=== PATIENT | female | born 1970 | race Two or more races ===

== ENCOUNTER → 2024-06-05 | Outpatient (CLI) | payer BC, SELFPAY ==
[2024-06-05 10:34] LABS: Basophils % (Auto) 1 % (0-2.5); Eosinophils % (Auto) 1 % (0-10); Hematocrit 39.1 % (36.0-46.0); Hemoglobin 13.4 g/dL (12.0-16.0); Immature Granulocytes % (Auto) 0 % (0-0); Immature Granulocytes Auto 0.01 Thou/mm3 (0.00-0.00); Immature Reticulocyte Fraction 15.2 % (3.0-15.9); Lymphocytes # (Auto) 1.4 Thou/mm3 (1.0-4.8); Lymphocytes % (Auto) 26 % (10-50); Mean Corpuscular HGB Conc 34.3 g/dl (31.0-37.0); Mean Corpuscular Hemoglobin 32.4 pg (25.0-35.0); Mean Corpuscular Volume 94 fL (80-100); Monocytes # (Auto) 0.4 Thou/mm3 (0.0-0.8); Monocytes % (Auto) 8 % (0-12); Neutrophils # (Auto) 3.3 Thou/mm3 (1.8-7.7); Neutrophils % (Auto) 64 % (37-80); Nucleated Red Blood Cell % 0 /100 WBC (0); Platelet Count 313 Thou/mm3 (140-440); RDW Standard Deviation 48.7 fL (36.4-46.3); Red Blood Count 4.14 Miln/mm3 (4.00-5.20); Reticulocyte Hgb Content 37.7 pg (28.0-35.0); White Blood Count 5.2 Thou/mm3 (3.6-11.0)
[2024-06-05 11:05] LABS: Alanine Aminotransferase 22 U/L (10-49); Albumin, Serum 4.7 gm/dL (3.5-5.0); Albumin/Globulin Ratio 2.1 (1.2-2.2); Alkaline Phosphatase 101 U/L (46-116); Anion Gap 10 (7-16); Aspartate Amino Transferase 25 U/L (0-34); BUN/Creatinine Ratio 30 Ratio (12-20); Bilirubin,Total 0.5 mg/dL (0.3-1.2); Blood Urea Nitrogen 21 mg/dL (9-23); Calcium 9.7 mg/dL (8.3-10.6); Calcium (Corrected) 9.7 mg/dL (8.5-10.1); Carbon Dioxide 24.2 mMol/L (20.0-31.0); Chloride 105 mMol/L (98-107); Creatinine (Component) 0.7 mg/dL (0.6-1.3); Globulin 2.2 gm/dL (2.3-3.5); Glucose 102 mg/dL (74-106); Osmolality,Calculated 280 (275-295); Potassium 4.4 mMol/L (3.4-5.1); Sodium 139 mMol/L (136-145); Total Protein 6.9 gm/dL (5.7-8.2); eGFR > 60 See Note
[2024-06-05 11:06] LABS: Ferritin 379 ng/mL (7.3-270.7); Iron 62 mcg/dL (50-170); Percent Iron Saturation 16 % (20-55); Total Iron Binding Capacity 368 mcg/dL (250-425); Unsaturated Iron Binding 306 (225-295)
[2024-06-05 14:05] LABS: Folate 10.58 ng/mL (>5.38)
[2024-06-05 15:55] LABS: Vitamin B12 299 pg/mL (211-911)
== END | disposition home or self-care (01) ==
PROVIDERS: PCP Internal Medicine; Referring Provider Nurse Practitioner Family; Visit Provider Nurse Practitioner Family
DX: D50.9 Iron deficiency anemia, unspecified (principal)
CPT/HCPCS: 36415; 80053; 82607; 82728; 82746; 83540; 83550; 85025; 85046

== ENCOUNTER 2024-06-09 09:02 | Outpatient (RCR) | payer BC, SELFPAY | END 2024-07-01 23:59 | disposition home or self-care (01) | LOC: SCTC 09:02 | PROVIDERS: PCP Internal Medicine; Referring Provider Internal Medicine; Visit Provider Nurse Practitioner Family | DX: D50.9 Iron deficiency anemia, unspecified (principal); Z98.84 Bariatric surgery status; R12 Heartburn | CPT/HCPCS: 99212; G0463 ==

== ENCOUNTER 2024-07-20 08:48 | Outpatient (RCR) | payer BC, SELFPAY | END 2024-08-01 23:59 | disposition home or self-care (01) | LOC: SCTC 08:48 | PROVIDERS: PCP Internal Medicine; Referring Provider Internal Medicine; Visit Provider Internal Medicine Hematology & Oncology | DX: D50.9 Iron deficiency anemia, unspecified (principal); Z98.84 Bariatric surgery status; R12 Heartburn | CPT/HCPCS: J1756; J7050 ==

== ENCOUNTER 2024-08-31 13:53 | Outpatient (RCR) | payer BC, SELFPAY | END 2024-08-31 23:59 | disposition home or self-care (01) | LOC: SCTC 13:53 | PROVIDERS: PCP Internal Medicine; Referring Provider Internal Medicine; Visit Provider Internal Medicine Hematology & Oncology | DX: D50.9 Iron deficiency anemia, unspecified (principal); Z98.84 Bariatric surgery status; R12 Heartburn | CPT/HCPCS: 96365; A4216; J1756; J7040; J7050; A9270 ==

== ENCOUNTER → 2024-09-08 | Outpatient (CLI) | payer BC, SELFPAY ==
[2024-09-08 11:06] LABS: Alanine Aminotransferase 31 U/L (10-49); Albumin, Serum 4.9 gm/dL (3.5-5.0); Albumin/Globulin Ratio 1.9 (1.2-2.2); Alkaline Phosphatase 92 U/L (46-116); Anion Gap 11 (7-16); Aspartate Amino Transferase 30 U/L (0-34); BUN/Creatinine Ratio 19 Ratio (12-20); Bilirubin,Total 0.6 mg/dL (0.3-1.2); Blood Urea Nitrogen 15 mg/dL (9-23); Calcium 9.5 mg/dL (8.3-10.6); Calcium (Corrected) 9.5 mg/dL (8.5-10.1); Carbon Dioxide 26.6 mMol/L (20.0-31.0); Cardiac Risk Estimate 3.2 RATIO (3.7-5.6); Chloride 103 mMol/L (98-107); Cholesterol 208 mg/dL (132-200); Creatinine (Component) 0.8 mg/dL (0.6-1.3); Globulin 2.6 gm/dL (2.3-3.5); Glucose 97 mg/dL (74-106); HDL Cholesterol 65 mg/dL (40-60); LDL Cholesterol,Calculated 102 mg/dL (0-130); Osmolality,Calculated 282 (275-295); Potassium 4.5 mMol/L (3.4-5.1); Sodium 141 mMol/L (136-145); Total Protein 7.5 gm/dL (5.7-8.2); Triglycerides 203 mg/dL (30-150); eGFR > 60 See Note
[2024-09-08 11:07] LABS: Ferritin 536 ng/mL (7.3-270.7); Iron 152 mcg/dL (50-170); Percent Iron Saturation 41 % (20-55); Total Iron Binding Capacity 363 mcg/dL (250-425); Unsaturated Iron Binding 211 (225-295)
[2024-09-08 11:09] LABS: Folate 10.78 ng/mL (>5.38)
[2024-09-08 18:33] LABS: Basophils # (Auto) 0.0 Thou/mm3 (0.0-0.2); Basophils % (Auto) 1 % (0-2.5); Eosinophils # (Auto) 0.1 Thou/mm3 (0.0-0.5); Eosinophils % (Auto) 2 % (0-10); Hematocrit 40.1 % (36.0-46.0); Hemoglobin 14.1 g/dL (12.0-16.0); Immature Granulocytes Auto 0.01 Thou/mm3 (0.00-0.00); Immature Reticulocyte Fraction 10.3 % (3.0-15.9); Lymphocytes # (Auto) 1.9 Thou/mm3 (1.0-4.8); Lymphocytes % (Auto) 39 % (10-50); Mean Corpuscular HGB Conc 35.2 g/dl (31.0-37.0); Mean Corpuscular Hemoglobin 32.3 pg (25.0-35.0); Mean Corpuscular Volume 92 fL (80-100); Monocytes # (Auto) 0.4 Thou/mm3 (0.0-0.8); Monocytes % (Auto) 8 % (0-12); Neutrophils # (Auto) 2.4 Thou/mm3 (1.8-7.7); Neutrophils % (Auto) 50 % (37-80); Nucleated Red Blood Cell # 0.00 Thou/mm3 (0.00-0.00); Nucleated Red Blood Cell % 0 /100 WBC (0); Platelet Count 314 Thou/mm3 (140-440); RDW Standard Deviation 45.1 fL (36.4-46.3); Red Blood Count 4.36 Miln/mm3 (4.00-5.20); Reticulocyte % (Auto) 2.5 % (0.5-1.5); Reticulocyte Absolute Auto 110.7 Biln/L (25.0-75.0); Reticulocyte Hgb Content 35.7 pg (28.0-35.0); White Blood Count 4.9 Thou/mm3 (3.6-11.0)
== END | disposition home or self-care (01) ==
LOC: SCTO 09:37
PROVIDERS: PCP Internal Medicine; Referring Provider Nurse Practitioner Family; Visit Provider Nurse Practitioner Family
DX: I10 Essential (primary) hypertension (principal); D50.9 Iron deficiency anemia, unspecified
CPT/HCPCS: 36415; 80053; 80061; 82728; 82746; 83540; 83550; 85025; 85046

== ENCOUNTER 2024-09-10 12:53 | Outpatient (RCR) | payer BC, SELFPAY | END 2024-10-01 23:59 | disposition home or self-care (01) | LOC: SCTC 12:53 | PROVIDERS: PCP Internal Medicine; Referring Provider Internal Medicine; Visit Provider Nurse Practitioner Family | DX: D50.9 Iron deficiency anemia, unspecified (principal); E53.8 Deficiency of other specified B group vitamins; Z98.84 Bariatric surgery status; K21.9 Gastro-esophageal reflux disease without esophagitis | CPT/HCPCS: 99212; G0463 ==

== ENCOUNTER 2024-11-16 14:14 | Emergency (ER) | payer BC, SELFPAY ==
[2024-11-16] VITALS (8 sets, daily range): BP systolic 97–211; BP diastolic 57–201; PULSE 43–66; RESP 16–20; TEMP 36.6–37; O2SAT 94–97; BMI 34.0
--- NOTE | 2024-11-16 14:17 | EDNOTE_ITS ---
ED General RME/HPI General Chief complaint: Altered Mental Status Stated complaint: ALTERED Time Seen by Provider: 11/16/24 14:16 Arrival date/time: 11/16/24 14:14 RME / HPI RME / HPI narrative: 53 year old female with history of iron deficiency, s/p gastric bypass 2003 presents to the ED BIBA from home for evaluation of altered mental status. Per medics report, the patient was found sitting in her home with empty alcohol bottles surrounding her which she reported drinking. Also admitted to taking two muscle relaxers with the alcohol. On scene, the patient was slurring her words, confused, and upset over a family members passing. Medic reports on scene patients pupils were equal and reactive, electronic technologist and strength equal bilaterally, and was able to stand and walk to the [facility] with assistance. Prehospital SBP 200s and blood glucose 151. No reported history of hypertension. In the ED, the patient is tearful. Related Data Home Medications ?Medication ?Instructions ?Recorded ?Confirmed amlodipine 10 mg tablet 10 mg PO QDAY 03/27/2103/27 bupropion HCl 300 mg 24 hr tablet, 300 mg PO QAM 03/2703/27/21 extended release Previous Rx's ?Medication ?Instructions ?Recorded docusate sodium 100 mg capsule 100 mg PO BID #40 caps 03/28/21 (Colace) hydrocodone 5 mg-acetaminophen 325 1 tab PO Q6H PRN pa in (scale score 03/28/21 mg tablet 7-10) #20 tabs ibuprofen 600 mg tablet 600 mg PO Q8H PRN pain (scal e 03/28/21 score 4-6) #15 tabs gabapentin 100 mg capsule 100 mg PO QHSPRN PRN insomni a #20 11/16/24 caps Allergies Allergy/AdvReac Type Severity Reaction Status Date / Time No Known Allergies Allergy Verified 03/28/21 08:25 Review of Systems Review of Systems Systems Reviewed: All systems reviewed, normal except as documented Past Medical History Past Medical History CARDIAC: Positive Cardiac Disorders and Hypertension (TAKES MED) GASTROINTESTINAL: Positive Gastrointestinal Disorders, Gall Bladder Disease (FOR THIS PROC) and Ulcer MUSCULOSKELETAL: Positive Musculoskeletal Disorders and Fractures (LEFT FOOT,RIGHT JAW HAS WIRES) HEMATOLOGIC: Positive Blood Disorders and Anemia PSYCHO/SOCIAL: Positive Depression and Anxiety OTHER HISTORY: Positive Hospitalization (HOSP DUE TO ANEMIA) and Autoimmune Disease (MOTHER,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 (ANEMIA)) Surgical History SURGICAL: Positive Tonsillectomy and Gastric Bypass Surgery (2003) Social History SMOKING STATUS: Never smoker ED Exam Narrative Physical exam: GENERAL APPEARANCE: alert and oriented x 4, well-developed, well-nourished, tearful, slurred speech, diaphoretic HEENT: Normocephalic, atraumatic; pupils equal, round, reactive to light; EOMI; mucous membranes pink, moist; oropharynx clear NECK: Supple LUNGS: CTABL; no wheezes, no rales, no rhonchi HEART: Regular rate, regular rhythm; normal S1, S2; no murmurs ABDOMEN: non distended; normal BS; soft, no tenderness, no guarding, no rebound; no masses, no organomegaly, no hernia BACK: no CVA tenderness EXTREMITIES: atraumatic; no edema NEUROLOGIC: awake; alert and oriented x4; cranial nerves II-XII grossly intact; no focal sensory or motor deficits PSYCHIATRIC: Tearful SKIN: warm, diaphoretic, normal color; no rashes Course Quality Measures none Orders Category Date Time Status [employer]er NOW Care 11/16/24 14:17 Completed EKG (ED ONLY) *Do not use* NOW Care 11/16/24 14:[address] head/brain wo con Stat Exams 11/16/24 14:19 Completed EKG (ED Only) Stat Exams 11/16/24 14:17 Draft XR chest 1V portable Stat Exams 11/16/24 14:17 Completed Alcohol, Blood Medical Stat Lab 11/16/24 14:45 Completed Ammonia Stat Lab 11/16/24 14:45 Completed B-Type Natriuretic Peptide Stat Lab 11/16/24 14:45 Completed CBC Stat Lab 11/16/24 14:45 Completed Comprehensive Metabolic Panel Stat Lab 11/16/24 14:45 Completed Drug Screen,Urine Stat Lab 11/16/24 16:42 Completed Magnesium Stat Lab 11/16/24 14:45 Completed Partial Thromboplastin Time Stat Lab 11/16/24 14:45 Completed Prothrombin Time with INR Stat Lab 11/16/24 14:45 Completed Troponin I Stat Lab 11/16/24 14:45 Completed UA, C/S IF [Urinalysis, C/S if Indicated] Stat Lab 11/16/24 16:42 Completed hydrALAZINE INJ [Apresoline Inj] Med 11/16/24 15:28 Discontinued 10 mg IVP X1 ONE Vital Signs Vital signs: Vital Signs Temperature 98.6 F 11/16/24 14:18 Pulse Rate 56 L 11/16/24 14:18 Respiratory Rate 20 11/16/24 14:18 Blood Pressure 208/126 H 11/16/24 14:18 Pulse Oximetry (%) 95 11/16/24 14:18 Oxygen Delivery Method Room Air 11/16/24 14:18 Pulse ox is 95% on room air which is adequate. Discharge Plan Plan Discharge Disposition comment: Stable Prescriptions/Referrals Prescriptions/Med Rec: New gabapentin 100 mg capsule 100 mg PO QHSPRN PRN (Reason: insomnia) Qty: 20 0RF No Action amlodipine 10 mg Tablet 10 mg PO QDAY bupropion HCl 300 mg Tablet Extended Release 24 Hr 300 mg PO QAM hydrocodone-acetaminophen 5-325 mg tablet 1 tab PO Q6H MDD 4 PRN (Reason: pain (scale score 7-10)) Qty: 20 0RF docusate sodium [Colace] 100 mg capsule 100 mg PO BID Qty: 40 0RF ibuprofen 600 mg tablet 600 mg PO Q8H PRN (Reason: pain (scale score 4-6)) Qty: 15 0RF Referrals: No Primary/Family,Physician [Primary Care Provider] - In 1 week Problem List Clinical Impression: Altered mental status Patient/Caregiver Discharge Instructions Print Language: Bruneian [facility] Narrative Sign out note: 1800: Patient signed out to Dr. Acosta pending urine drug screen and final disposition. [facility] hospital course: Kyung Watkins am scribing for and in the presence of Dr. Alonso. Clinical Information Provided by patient and EMS Medical Records Reviewed [facility] and EMS I reviewed outpatient note from [facility] on 02/27/2023 Meds/Rx Considered, not Ordered None Labs/Rad/Tests considered, not Ordered None Chronic Illness/Social Conditions which may negatively complicate care or outcome(s)-explain: ETOH/drugs/substance abuse Add or document further as needed: Alcohol use EKG EKG Interpretation narrative: EKG @ 15:11 sinus bradycardia with PVCs rate 53, no acute ischemic changes. Lab Interpretation Labs: interpreted by wa Lab(s) interpretation(s): CBC within normal limits Imaging Radiology reports / interpretation(s): Ordering Physician: Maggy Alonso MD Date of Service: 11/16/24 Procedure(s): XR chest 1V portable Accession Number(s): [id number] cc: Buzz De Jesus MD; NO PRIMARY/FAMILY,PHYSICIAN; Maggy Alonso MD~ Examination: AP chest single view TECHNIQUE: AP portable semiupright chest single view Date and time: November 16, 2024 INDICATIONS: Chest pain today. FINDINGS: Poor inspiratory effort chest x-ray. Mild prominence left ventricle Mild vascular congestion. No lobar pneumonia or pulmonary edema IMPRESSION: Poor inspiratory effort chest x-ray Dictated By: Buzz De Jesus MD Signed By: <Electronically signed by Buzz De Jesus MD in OV> 11/16/24 1552 Ordering Physician: Maggy Alonso MD Date of Service: 11/16/24 Procedure(s): CT head/brain wo con Accession Number(s): [id number] cc: Buzz De Jesus MD; Maggy Alonso MD~ Examination: CT brain head without contrast. 2-D sagittal coronal reconstructions Date and time of exam:November 16, 2024 1533 hours, comparison April 15, 2012 INDICATIONS: Altered mental status today CTDI: vol (mGy):72.4 DLP: (mGycm):1386 Technique: Multiple CT axial sections of the brain have been obtained, 5 mm slice thickness. Contrast has not been administered. 2-D sagittal, coronal reconstructions have been obtained Low dose protocols were performed. One or more of the following dose reduction techniques were used; automated exposure control, adjustment of the mA and/or KV according to patient size, use of iterative reconstruction technique. Findings: No significant ventricular enlargement. Intra-axial or extra-axial hemorrhage density is not seen. No mass effect or midline shift Basal cisterns are not remarkable. Fourth ventricle is midline. Cranial vault intact. Impression: Negative for acute hemorrhage, mass effect or midline shift Advise clinical correlation follow-up accordingly Dictated By: Buzz De Jesus MD Signed By: <Electronically signed by Buzz De Jesus MD in OV> 11/16/24 1546 Medication Administration(s) Medication Administration History Discontinued Medications Hydralazine HCl (Hydralazine Inj 20 Mg/Ml Vial) 10 mg IVP X1 ONE Stop: 11/16/24 15:29 Last Admin: 11/16/24 15:45 Dose: 10 mg Documented By: BY See above Diagnosis Most likely dx, and/or detailed dx discussion: Alcohol intoxication Dispositon Disposition: other (signed out to Dr. Acosta )
--- NOTE | 2024-11-16 14:17 | EKG_ITS ---
[facility] Test Date: 2024-11-16 Pat Name: KARSTEN HERNANDEZ Department: Room: - Gender: Female Call Taker: : [id number] Requested By: Maggy Moscoso Order Number: [id number] Reading MD: Maggy Moscoso Measurements Intervals [place] Rate: 53 P: 30 UT: 178 QRS: 5 QRSD: 102 T: 34 QT: 447 QTc: 420 Interpretive Statements SINUS BRADYCARDIA WITH OCCASIONAL VENTRICULAR PREMATURE COMPLEXES Compared to ECG 03/27/2021 13:49:28 Ventricular premature complex(es) now present Sinus rhythm no longer present T-wave abnormality no longer present /store/S0/[id number]/ecg/[id number].pdf
[2024-11-16 14:54] LABS: Basophils # (Auto) 0.0 Thou/mm3 (0.0-0.2); Basophils % (Auto) 1 % (0-2.5); Eosinophils # (Auto) 0.1 Thou/mm3 (0.0-0.5); Eosinophils % (Auto) 1 % (0-10); Hematocrit 40.6 % (36.0-46.0); Hemoglobin 13.9 g/dL (12.0-16.0); Immature Granulocytes Auto 0.02 Thou/mm3 (0.00-0.00); Lymphocytes # (Auto) 1.8 Thou/mm3 (1.0-4.8); Lymphocytes % (Auto) 28 % (10-50); Mean Corpuscular HGB Conc 34.2 g/dl (31.0-37.0); Mean Corpuscular Hemoglobin 31.5 pg (25.0-35.0); Mean Corpuscular Volume 92 fL (80-100); Monocytes # (Auto) 0.3 Thou/mm3 (0.0-0.8); Monocytes % (Auto) 5 % (0-12); Neutrophils # (Auto) 4.3 Thou/mm3 (1.8-7.7); Neutrophils % (Auto) 66 % (37-80); Nucleated Red Blood Cell # 0.00 Thou/mm3 (0.00-0.00); Nucleated Red Blood Cell % 0 /100 WBC (0); Platelet Count 358 Thou/mm3 (140-440); RDW Standard Deviation 42.3 fL (36.4-46.3); Red Blood Count 4.41 Miln/mm3 (4.00-5.20); White Blood Count 6.5 Thou/mm3 (3.6-11.0)
[2024-11-16 15:09] LABS: INR 1.0 (0.9-1.3); Partial Thromboplastin Time 25.4 Seconds (22.0-36.0); Prothrombin Time 10.6 Seconds (9.0-12.2)
[2024-11-16 15:11] LABS: Ammonia 57 uMol/L (11-32); B-Type Natriuretic Peptide 87 pg/mL (0-100)
[2024-11-16 15:12] LABS: Alanine Aminotransferase 18 U/L (10-49); Albumin, Serum 4.8 gm/dL (3.5-5.0); Albumin/Globulin Ratio 2.0 (1.2-2.2); Alcohol, Blood Medical 58.6 mg/dL (0-10.0); Alkaline Phosphatase 103 U/L (46-116); Anion Gap 15 (7-16); Aspartate Amino Transferase 27 U/L (0-34); BUN/Creatinine Ratio 9 Ratio (12-20); Bilirubin,Total 0.5 mg/dL (0.3-1.2); Blood Urea Nitrogen 7 mg/dL (9-23); Calcium 10.1 mg/dL (8.3-10.6); Calcium (Corrected) 10.1 mg/dL (8.5-10.1); Carbon Dioxide 18.3 mMol/L (20.0-31.0); Chloride 104 mMol/L (98-107); Creatinine (Component) 0.8 mg/dL (0.6-1.3); Globulin 2.4 gm/dL (2.3-3.5); Glucose 140 mg/dL (74-106); Magnesium 2.3 mg/dL (1.6-2.6); Osmolality,Calculated 273 (275-295); Potassium 4.3 mMol/L (3.4-5.1); Sodium 137 mMol/L (136-145); Total Protein 7.2 gm/dL (5.7-8.2); Troponin I < 0.020 ng/mL (0.0-0.045); eGFR > 60 See Note
[2024-11-16] MEDS: hydrALAZINE INJ 20 MG/ML VIAL 10 MG IVP (15:45)
[2024-11-16 16:56] LABS: Collection Type, Urine Catheter
--- NOTE | 2024-11-16 17:10 | PC.NURSE ---
Friend, Pamela Weaver at bedside claims she is the patients POC. She states patient's is immobile and her sister is deaf, so she is the only person to come/go and gather updates and is in constant communication with the family. Elise Weaver (friend):
[2024-11-16 17:13] LABS: Bilirubin,Urine Negative (Negative); Blood,Urine Negative (Negative); Clarity,Urine Clear (Clear/Hazy); Color,Urine Lt-Yellow (Lt Yel-Yel); Culture Indicated,Urine Not Indicated; Glucose, Urine Negative (Negative); Hyaline Casts,Urine < 1 /hpf (0-1); Ketones,Urine Negative (Negative); Leukocyte Esterase,Urine Positive (Negative); Nitrite,Urine Negative (Negative); PH,Urine 5.0 (5.0-7.0); Protein,Urine Negative (Neg - Trace); RBC,Urine < 1 /hpf (0-3); Specific Gravity,Urine 1.018 (1.001-1.035); Squamous Epithelial Cell,Urine 1 /hpf (0-5); Urobilinogen,Urine Negative mg/dL (0.0-1.0); WBC,Urine 1 /hpf (0-5)
--- NOTE | 2024-11-16 18:13 | EDNOTE_ITS ---
Emergency Room Addendum Addendum Narrative: 1800: Care assumed from Dr. Alonso (emergency physician). Past medical, surgical, social and family history reviewed. Vitals and home medications reviewed. Results and treatment plan discussed. I will assume the care of the patient at this time and will follow the patient, pending reassessment and final disposition. The following addendum documentation note is intended to reflect any pending information, findings, or radiology results not included in the patient?s initial chart by the previous shift scribe. 53 y/o female who presented earlier today with AMS thought to be possibly intoxicated and according to medics at scene, both empty bottles of alcohol and muscle relaxants were scatted about in patient's residence. Patient was placed on monitor and place on AMS protocol. Laboratory markers including CBC, serum chemistries, UA, and Toxicology which were all essentially unremarkable. Ethanol was 0.05. and serum ammonia mildly elevated at 57. Troponin I undetected. CT brain without acute process. Chest x-ray without acute findings. Patient observed for an extended period of time. Sorium gradually improving, baseline. Patient has poor recollection of events and possibly taken Ambien along with alcohol consumption and is likely the cause of patient's alternate presentation. Direct inquiry regarding possible suicidal ideation/depression/recurrence of event was unremarkable. Counseled on combining mind altering drugs/substances and is considered clinically stable for discharge. I have spoken with the patient and discussed today?s findings, in addition to providing specific details for the plan of care. Questions are answered and t here is an agreement with the plan. Re-assessment at the time of disposition demonstrates that the patient is in no acute distress. The patient has remained stable throughout the entire ED visit and is without objective evidence for acute process requiring urgent intervention or hospitalization. The patient is stable for discharge; counseling is provided and documented as above, discussed symptomatic treatment and specific conditions for return.
[2024-11-16 18:50] LABS: Amphetamine/Methamp Scrn,U Negative (Negative); Barbiturate Screen,Urine Negative (Negative); Benzodiazepines Screen,Urine Negative (Negative); Benzoylecgonine Screen, Ur Negative (Negative); Fentanyl Screen,Urine Negative (Negative); Opiate Screen,Urine Negative (Negative); THC Screen,Urine Negative (Negative)
== END 2024-11-16 22:38 | disposition home or self-care (01) ==
PROVIDERS: Emergency Medicine; Emergency Provider Emergency Medicine
DX: R41.82 Altered mental status, unspecified (principal); R07.9 Chest pain, unspecified; R00.1 Bradycardia, unspecified; I49.3 Ventricular premature depolarization; I10 Essential (primary) hypertension
CPT/HCPCS: 36415; 70450; 71045; 80053; 80307; 80320; 81001; 82140; 83735; 83880; 84484; 85025; 85610; 85730; 93005; 96374; 99284; J0360; G0480